=== PATIENT | male | born 1965 ===

== ENCOUNTER 2022-01-30 17:04 | Emergency (ER) | payer OTHER ==
[~2022-01-30] VITALS: Ht 182.9 cm; Wt 102.7 kg
[2022-01-30 19:15] VITALS: BP 147/90
== END 2022-01-30 20:57 | disposition left against medical advice (07) ==
LOC: ER 17:06
DX: R11.10 Vomiting, unspecified (principal); R19.7 Diarrhea, unspecified; Z53.21 Procedure and treatment not carried out due to patient leaving prior to being seen by health care provider